=== PATIENT | female | born 1930 | race Caucasian/White ===

== ENCOUNTER 2020-10-11 12:39 | Emergency (ER) | payer MEDICARE, OTHER ==
[~2020-10-11 12:39] MED LIST: ACETAMINOPHEN325 MG PO; ALDACTONE25 MG PO; ASPIRIN CHEWABL81 MG PO; CLARITIN10 MG PO; COLACE100 MG PO; DULERA 200 MCG8.8 GM INH; DUONEB 2.5-0.5M1 AMP NEB; ELIQUIS2.5 MG PO; FEOSOL325 MG PO; LASIX40 MG PO; LAXATIVE OF CHOICE PO; LISINOPRIL5 MG PO; NORCO 5-325 TA1 EACH PO; NORVASC5 MG PO; PAROXETINE 20MG20 MG PO; PERCOCET 5-3251 EACH PO; PREDNISONE 10MG10 MG PO; PREDNISONE 20MG20 MG PO; TRELEGY ELLIPT1 EACH INH; VITAMIN B-121000 MC4 PO; ZOFRAN8 MG PO
[2020-10-11 13:26] LABS: BASOPHIL 0.3 % (0-2); EOSINOPHIL 0.1 % (0-7); HCT 39.8 % (37.0-47.0); HGB 11.8 g/dl (12.5-16.0); LYMPHOCYTE 2.9 % (15-48); MCH 27.6 pg (25.0-31.0); MCHC 29.6 g/dL (32.0-36.0); MCV 93.2 fL (78.0-100.0); MONOCYTE 8.2 % (0-12); MPV 10.9 fL (6.0-9.5); NEUTROPHIL 88.1 % (41-80); NRBC 0; PLT 219 K/uL (150-400); RBC 4.27 M/uL (4.20-5.40); RDW 13.8 % (11.5-14.0); WBC 13.9 K/uL (4.0-10.5)
[2020-10-11 13:43] LABS: ALBUMIN 2.4 g/dL (3.4-5.0); BILIRUBIN - TOTAL 0.6 mg/dL (0.2-1.0); CREATININE 1.05 mg/dL (0.51-0.95); GLOBULIN (CALCULATION) 3.8 g/dL; POTASSIUM 4.2 mmol/L (3.5-5.1); TOTAL PROTEIN 6.2 g/dL (6.4-8.2)
[2020-10-11 14:10] LABS: CORONAVIRUS 2019 SARS-COV-2 NEGATIVE (NEGATIVE)
[2020-10-11 14:11] LABS: INFLUENZA A NAA NEGATIVE (NEGATIVE)
[2020-10-11] MEDS ORDERED: LEVAQUIN500 MG PO (15:23)
[2020-10-11] MEDS ORDERED: PREDNISONE 20MG20 MG PO (15:23)
== END 2020-10-11 16:57 | disposition home or self-care (01) ==
LOC: FER 12:39
PROVIDERS: Nurse Practitioner Family
DX: J18.9 Pneumonia, unspecified organism (principal); I11.0 Hypertensive heart disease with heart failure; I50.9 Heart failure, unspecified; Z20.822 Contact with and (suspected) exposure to COVID-19
CPT/HCPCS: 36415; 36600; 71045; 80053; 82803; 83880; 85025; 93005; J0696; J1940; U0002